=== PATIENT | male | born 1950 | race Caucasian/White ===

== ENCOUNTER 2019-07-15 09:47 | Inpatient (IN) ==
[2019-07-15] MEDS ORDERED: ANTIVERT PO ONE (10:12)
--- NOTE | 2019-07-15 10:28 | Diag Imaging Result Doc PS360 ---
EXAM: CHEST-1 VIEW 07/15/2019 HISTORY: sob TECHNIQUE: AP portable upright at 1016 COMMENT: There are skinfolds bilaterally. The heart size and pulmonary vascularity are within normal limits. The lungs are clear. There is a fairly large amount of gas and stool in the visualized portion of the splenic flexure of the colon. IMPRESSION: No evidence of acute intrathoracic disease. Electronically signed by Chi Rodriguez 07/15/2019 10:26 AM
[2019-07-15 10:32] LABS: BASO# 0.02 X1000 (0.0-0.2); BASO% 0.4 % (0.0-0.8); EOS# 0.06 X1000 (0.0-0.7); EOS% 1.3 % (0.0-10.0); HEMATOCRIT 42.8 % (42.0-52.0); HEMOGLOBIN 14.3 g/dL (14.0-18.0); IMM GRAN# 0.02 X1000 (0.0-0.04); IMM GRAN% 0.4 % (0.0-0.5); LYMPH# 1.23 X1000 (1.2-3.4); MCH 29.4 PG (27-31); MCHC 33.4 g/dL (33-37); MCV 87.9 FL (81-99); MONO# 0.37 X1000 (0.11-0.59); MONO% 7.8 % (1.7-9.3); MPV 10.1 FL (7.4-10.4); NEUT# 3.03 X1000 (1.4-6.5); NEUT% 64.1 % (42.2-75.2); PLT 250 X1000 (130-400); RBC 4.87 XMIL (4.7-6.1); RDW 13.3 % (11.5-14.5); WBC 4.73 X1000 (4.8-10.8)
[2019-07-15 11:08] LABS: AGAP 11; ALB/GLOB RATIO 1.4; ALBUMIN 4.1 g/dL (3.5-5.0); ALKALINE PHOSPHATASE 83 U/L (32-122); BUN 14 mg/dL (8-22); CALCIUM 9.5 mg/dL (8.8-10.2); CHLORIDE 96 mmol/L (98-107); COSMO 282; CREATININE 0.8 mg/dL (0.7-1.2); ESTIMATED GFR > 60; GLUCOSE 311 mg/dL (70-104); GOT 12 U/L (10-34); GPT 17 U/L (10-44); POTASSIUM 4.2 mmol/L (3.5-5.1); SODIUM 135 mmol/L (136-145); TCO2 28 mmol/L (25-35); TOTAL BILIRUBIN 0.35 mg/dL (0.20-1.00)
[2019-07-15 12:12] LABS: INR 0.92; PROTIME 12.4 Seconds (11.0-16.0); PTT 27.9 Seconds (22.3-41.8)
[2019-07-15] MEDS ORDERED: ASPIRIN PO ONE (14:01)
--- NOTE | 2019-07-15 14:58 | EKG Report ---
Test Performed on : 07/15/2019 10:02:38 AM Test Reason : sob Blood Pressure : / mmHG Vent. Rate : 088 BPM Atrial Rate : 088 BPM P-R Int : 172 ms QRS Dur : 092 ms QT Int : 382 ms P-R-T Axes : 067 -52 028 degrees QTc Int : 462 ms Normal sinus rhythm. Left anterior fascicular block Anteroseptal infarct (cited on or before 15-AUG-2017) ACUTE OH / STEMI Abnormal ECG When compared with ECG of 10-SEP-2018 14:01, No significant change was found Unconfirmed Result
--- NOTE | 2019-07-15 15:00 | EKG Report ---
Test Performed on : 07/15/2019 10:05:34 AM Test Reason : sob Blood Pressure : / mmHG Vent. Rate : 088 BPM Atrial Rate : 090 BPM P-R Int : 000 ms QRS Dur : 090 ms QT Int : 380 ms P-R-T Axes : 000 -54 020 degrees QTc Int : 459 ms Accelerated Junctional rhythm. Left anterior fascicular block Septal infarct (cited on or before 15-AUG-2017) Abnormal ECG When compared with ECG of 15-JUL-2019 10:02, (Unconfirmed) Junctional rhythm. has replaced Sinus rhythm. Unconfirmed Result
--- NOTE | 2019-07-15 17:40 | Diag Imaging Result Doc PS360 ---
EXAM: CT HEAD W/O CONTRAST HISTORY: encephalopathy TECHNIQUE: CT head without contrast COMPARISON: 10/31/2018 FINDINGS: No parenchymal hemorrhage. No epidural or subdural hematoma. No subarachnoid hemorrhage. There are chronic microvascular ischemic changes. No mass identified on this noncontrasted exam. No hydrocephalus. There is fluid in the mastoid sinuses. IMPRESSION: 1.No hemorrhage 2.Chronic microvascular ischemic changes This exam was performed using automated exposure control, adjustment of mA or kV according to patient size, and/or use of iterative reconstruction technique. Electronically signed by Dameon Cervantes 07/15/2019 5:38 PM
[2019-07-15] MEDS: NS + KCL 20 MEQ 1,000 ML IV SCH (17:57)
--- NOTE | 2019-07-15 19:03 | HISTORY AND PHYSICAL ---
CHIEF COMPLAINT: Dizziness. HISTORY OF PRESENT ILLNESS: Mr. Phipps is a 68-year-old white gentleman, not feeling well the last few days. The patient was complaining of being dizzy and unsteady this morning. The patient described dizziness at times as the lightheadedness and at other times vertigo lasting for few minutes. Patient was also complaining of a neck pain. The patient had a fall about a year ago. Patient does have nausea at times, but no vomiting. The patient had significant vertigo and dizziness a few days ago. At that time evaluated by EMS. They thought it was related to his heart. The patient was sent to [facility] in air ambulance where he was told to have vertigo and patient evaluated and sent back. The patient is very vague and poor historian. The patient denied any typical chest pain or palpitations. At times nausea, but no vomiting. The patient does have a ringing in the ears. Occasional cough. No expectoration. Denied abdominal pain. No diarrhea, blood, or mucus in the stool. No dysuria or hematuria. The patient does have, at times, constipation. Longstanding diabetes mellitus, poorly controlled, partially due to noncompliance to medication and diet the patient does have chronic low back pain and neck pain. The patient does have diffuse osteoarthritis. Unquantified weight loss. At times, polyuria, polydipsia. No leg swelling. The patient was feeling weak. No recent seizure-type episode. No joint swelling or redness. The patient was evaluated in the ER. His initial EKG suspicious for [place] which was reviewed by help desk technician. The patient did not have any chest pain, and his enzymes were negative. The patient claims to have poor appetite, vague abdominal pain and at times, nausea. ALLERGY: Propoxyphene. PAST MEDICAL HISTORY: Longstanding diabetes mellitus poorly controlled, hypertension, hyperlipidemia, weight loss, history of thyroid cancer status post surgery, osteoarthritis, gastritis, situational depression, peripheral neuropathy, BPH, gastritis and reflux disease. PERSONAL HISTORY: . Lives with the . Nonsmoker. Denied alcohol or substance abuse. Needs assistance in activities of daily living. FAMILY HISTORY: Significant for a mother with dementia, coronary artery disease, arthritis. His mother and few years ago. Father of pneumonia. Otherwise, noncontributory. PHYSICAL EXAMINATION: GENERAL: Elderly, white gentleman, who does look older for his age. The patient has lost weight. VITAL SIGNS: Blood pressure 130/80, pulse 78, respirations 20, temperature 99 degrees. SKIN: Senile turgor. HEENT: Head atraumatic, normocephalic. [place] conjunctivae. Anicteric sclerae. Extraocular muscle movement normal. Fundus cannot be penetrated. Good oral hygiene. No tonsillopharyngeal congestion or exudate. Ears and nose benign. NECK: Supple. No JVD, thyromegaly or lymphadenopathy. CHEST: Bilateral good air entry present. Few basal crepitations. No rales. CARDIOVASCULAR: S1 and S2 heard. No gallop or thrill. A 2/6 systolic murmur at the apex. ABDOMEN: Soft, scaphoid. Bowel sounds present. No organomegaly or mass. EXTREMITIES: No cyanosis, clubbing. No acute DVT. Peripheral pulsation intact. INVESTMENT DIRECTOR: Alert, awake. Answering questions fair. Able to move all 4 limbs. Patient does have tenderness on the cervical spine and lumbosacral spine. Crepitation in both the knee joints. 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 DIAGNOSTIC STUDIES: The patient's chest x-ray revealed no evidence of acute intrathoracic disease. CT scan of the brain no acute disease. I reviewed his EKG which was benign. IMPRESSION: Patient admitted with dizziness. Clinically sounds like vertigo. Patient does have other multiple medical problems, including uncontrolled diabetes mellitus, hypertension, gastritis and reflux disease and neck pain. The patient was recently seen by [facility]. I am going to get that record. Hyperlipidemia. History of thyroid cancer. PLAN: Admit the patient. Neuro check. IV fluid. Check postural blood pressure and heart rate. Monitor Accu-Chek. Fall precaution. Continue rest of the medicine. Overall plan discussed at length with the patient and he is in agreement. cc: Andrea Goddard MD
--- NOTE | 2019-07-15 19:12 | Diag Imaging Result Doc PS360 ---
EXAM: CERVICAL SPINE COMPLETE HISTORY: neck pain TECHNIQUE: AP and lateral with obliques, five views COMPARISON: 04/23/2014 FINDINGS: Mild reversal of the normal curvature. Prominent degenerative bone spurring in the lower cervical spine. No precervical soft tissue swelling. No subluxation. IMPRESSION: Prominent degenerative changes. Electronically signed by Dameon Cervantes 07/15/2019 7:10 PM
[2019-07-15] MEDS ORDERED: TYLENOL PO PRN (20:11)
[2019-07-15] MEDS ORDERED: FLOMAX PO SCH (21:00)
[2019-07-15] MEDS: HUMALOG SUBQ SCH (21:08)
[2019-07-15] MEDS: TOPROL XL PO SCH (21:08)
[2019-07-16 04:58] LABS: BASO# 0.01 X1000 (0.0-0.2); BASO% 0.1 % (0.0-0.8); EOS# 0.06 X1000 (0.0-0.7); EOS% 0.9 % (0.0-10.0); HEMATOCRIT 38.7 % (42.0-52.0); HEMOGLOBIN 12.9 g/dL (14.0-18.0); IMM GRAN# 0.02 X1000 (0.0-0.04); IMM GRAN% 0.3 % (0.0-0.5); LYMPH# 1.47 X1000 (1.2-3.4); MCH 29.2 PG (27-31); MCHC 33.3 g/dL (33-37); MCV 87.6 FL (81-99); MONO# 0.46 X1000 (0.11-0.59); MONO% 6.9 % (1.7-9.3); MPV 9.9 FL (7.4-10.4); NEUT# 4.65 X1000 (1.4-6.5); NEUT% 69.8 % (42.2-75.2); PLT 255 X1000 (130-400); RBC 4.42 XMIL (4.7-6.1); RDW 13.3 % (11.5-14.5); WBC 6.67 X1000 (4.8-10.8)
[2019-07-16 05:08] LABS: HEMOGLOBIN A1C 13.5 % (4.8-6.0)
[2019-07-16] MEDS: NS + KCL 20 MEQ 1,000 ML IV SCH (05:18)
[2019-07-16 05:26] LABS: AGAP 9; ALB/GLOB RATIO 1.3; ALBUMIN 3.5 g/dL (3.5-5.0); ALKALINE PHOSPHATASE 70 U/L (32-122); BUN 18 mg/dL (8-22); CALCIUM 9.1 mg/dL (8.8-10.2); CHLORIDE 99 mmol/L (98-107); COSMO 276; CREATININE 0.6 mg/dL (0.7-1.2); ESTIMATED GFR > 60; GLUCOSE 173 mg/dL (70-104); GOT 13 U/L (10-34); GPT 14 U/L (10-44); MAGNESIUM 1.5 mg/dL (1.5-2.7); POTASSIUM 3.8 mmol/L (3.5-5.1); SODIUM 135 mmol/L (136-145); TCO2 27 mmol/L (25-35); TOTAL BILIRUBIN 0.32 mg/dL (0.20-1.00); TOTAL PROTEIN 6.3 g/dL (6.3-8.3)
[2019-07-16 05:45] LABS: TSH 1.39 uIUmL (0.27-4.20)
[2019-07-16] MEDS: HUMALOG SUBQ SCH ×3 (06:41→18:04)
[2019-07-16] MEDS ORDERED: MILK OF MAGNESIA PO ONE (07:02)
[2019-07-16] MEDS ORDERED: LINZESS PO ONE (07:02)
--- NOTE | 2019-07-16 07:16 | PROGRESS NOTE ---
DATE: 07/16/2019 SUBJECTIVE: Mr. Phipps is doing better. The patient was able to rest well last night. No high- grade fever or chills. Denied any chest pain. His vertigo is better. Denied any headache. No runny nose or stuffy nose. OBJECTIVE: Vitals: Noted. Neck: Supple. No JVD. Lungs: Bilateral good air entry present. CVS: S1 and S2 heard. Abdomen: Soft, nontender. Bowel sounds present. Extremities: No cyanosis or clubbing. No acute DVT. BAREBACK RIDER: Alert, awake, able to move all 4 limbs. DIAGNOSTIC DATA: The patient had x-ray done of the cervical spine which did reveal prominent degenerative changes which can explain his pain. X-ray of the chest, no evidence of acute intrathoracic disease. The patient seems to have significant constipation. Patient admitted with dizziness. His lab data did reveal uncontrolled diabetes mellitus. Hemoglobin A1c was 13.5. The patient is quite noncompliant. Continue current treatment, close observation. His BUN was 18, creatinine 0.6. Calcium 9.1. Magnesium was 1.5. ASSESSMENT AND PLAN: Overall plan was discussed with the patient and and they are in agreement. cc: Andrea Goddard MD
[2019-07-16] MEDS ORDERED: LANTUS INSULIN SUBQ SCH (09:00)
[2019-07-16] MEDS ORDERED: NORVASC PO SCH ×2 (09:00)
[2019-07-16] MEDS ORDERED: CYMBALTA PO SCH (09:00)
[2019-07-16] MEDS ORDERED: AVAPRO PO SCH (09:00)
[2019-07-16] MEDS ORDERED: VITAMIN D PO SCH (09:00)
[2019-07-16] MEDS: TOPROL XL PO SCH (09:03)
[2019-07-16 14:15] VITALS: BP 116/61
[2019-07-16 18:05] LABS: URINE SOURCE CLEAN CATCH
[2019-07-16 18:11] LABS: BILIRUBIN URINE NEGATIVE (NEGATIVE); BLOOD URINE NEGATIVE (NEGATIVE); COLOR YELLOW; GLUCOSE URINE >1000 mg/dL (NEGATIVE); KETONE URINE NEGATIVE (NEGATIVE); LEUKOCYTES URINE NEGATIVE (NEGATIVE); NITRITE URINE NEGATIVE (NEGATIVE); PH URINE 5.5; PROTEIN URINE NEGATIVE (NEGATIVE); TURBIDITY URINE CLEAR (CLEAR); UROBILINOGEN URINE NORMAL (NORMAL)
[2019-07-16 18:20] LABS: UR EPITHELIAL CELLS <10 /HPF (<10); URINE BACTERIA NEGATIVE /HPF; URINE CASTS NONE SEEN; URINE CRYSTALS NONE SEEN; URINE RBC <10 /HPF (<10); URINE SMALL ROUND CELLS NONE SEEN; URINE WBC <10 /HPF (<10); URINE YEAST PRESENT
--- NOTE | 2019-07-17 14:10 | Carotid Study ---
DATE: 07/15/2019 PROCEDURE PERFORMED: Bilateral duplex and color flow imaging of the carotid arteries performed using a GE Vivid E9 ultrasound system with a 9L-D transducer. REFERRING PHYSICIAN: Not recorded. INDICATION: Dizziness. MANAGER STAR: Gautam Jo RVT. FINDINGS: The velocities in cm/sec of both carotid systems were reviewed. The right ICA/CCA ratio is 0.92 corresponding to a percent stenosis of 0 to 39 percent. The left ICA/CCA ratio 0.64 corresponding to a percent stenosis of 0 to 39 percent. INTERPRETATION: Mild atherosclerotic disease of the distal common and internal carotid arteries bilaterally without evidence of a hemodynamically significant lesion in either carotid system. cc: MD Andrea Loyola MD
--- NOTE | 2019-07-17 15:35 | PROVIDER DOCUMENTATION ---
This chart was entered by Nava Espino Scribe, acting as scribe for Larry Chavarria MD. HPI-Cardiac General - General Stated Complaint: WEAKNESS Time Seen by Provider: 07/15/19 10:06 Source: patient, family Allergies/Adverse Reactions: Patient Allergies Allergy/AdvReac Type Severity Reaction Status Date / Time propoxyphene Allergy Intermediate Unknown Verified 10/31/18 10:58 propoxyphene HCl * Allergy Unknown Verified 10/31/18 10:58 [From [facility]] Home Medications: Home Medication List Medication Instructions Recorded Confirmed Last Taken Type Amlodipine [Norvasc] 5 mg PO DAILY tablet 08/09/17 07/15/19 10/30/18 07:00 Rx Tamsulosin [Flomax] 0.4 mg PO DAILY #30 capsule 08/09/17 07/15/19 10/30/18 07:00 Rx Losartan [Cozaar] 100 mg PO DAILY 10/15/17 07/15/19 10/30/18 07:00 History Insulin Glargine [Lantus] 0 unit SUBQ QAM #7 insuln.pen 09/14/18 07/15/19 10/31/18 08:00 Rx Cholecalciferol (Vitamin D3) 1,000 unit PO DAILY 10/31/18 07/15/19 10/30/18 07:00 History [Vitamin D3] Duloxetine [Cymbalta] 60 mg PO QAM 10/31/18 07/15/19 10/30/18 07:00 History Metoprolol Succinate E.r. [Toprol 25 mg PO BID 10/31/18 07/15/19 10/30/18 20:00 History Xl] Irbesartan 150 mg PO DAILY 07/15/19 07/15/19 Unknown History Metformin [Glucophage] 500 mg PO DAILY 07/15/19 07/15/19 Unknown History - History of Present Illness-Cardiac Nature of Presenting Problem: 68yom presents to ED by EMS cc dizzy, SOB, seeing spots, nausea and pain in back of neck for 1 week. Family is at bedside and reports pt was seen recently at [facility] for similar symptoms. Pt denies chest pain. Pt and family are very poor hx. Pt has hx of HTN, DM and dementia. EMS reprots pt b/p was 50/? upon arrival so in route they gave him 50 atropine and 500 IV fluids. Onset/Duration: 1 week ago Timing: still present Context/Activities at Onset: reports: light activity Modifying Factors: improves with: nothing Associated Symptoms: reports: nausea, shortness of breath Similar Symptoms Previously?: Yes Recently Seen Here or By Another Healthcare Provider: Yes Review of Systems - Adult - REVIEW OF SYSTEMS - ADULT Constitutional: reports: see HPI, fatique. denies: chills, fever Eyes: reports: no symptoms reported Ears, Nose, Mouth & Throat: reports: no symptoms reported Cardiovascular: reports: see HPI. denies: chest pain, palpitations Respiratory: reports: see HPI, shortness of breath. denies: cough Gastrointestinal: reports: see HPI, nausea. denies: diarrhea, vomiting Genitourinary: reports: no symptoms reported Musculoskeletal: reports: see HPI, neck pain Integumentary: reports: no symptoms reported Neurological: reports: see HPI, dizziness/vertigo. denies: syncope Psychiatric: reports: no symptoms reported Endocrine: reports: no symptoms reported Hematologic/Lymphatic: reports: no symptoms reported Allergic/Immunologic: reports: no symptoms reported All Other Systems: Reviewed and Negative Past History - Adult - PAST MEDICAL HISTORY-ADULT Review of Records: reports: Nursing Assessment Review, Medications Reviewed, Social history reviewed & non-contributory. Major Childhood Illnesses: reports: denies history Cardiovascular: reports: HTN, hyperlipidemia Respiratory: reports: denies history Gastrointestinal: reports: denies history Obstetrical/Gynecological: reports: denies history Genitourinary: reports: denies history Musculoskeletal: reports: denies history Neurological: reports: Seizures/Epilepsy Psychiatric: reports: denies history Endocrine/Immune: reports: Diabetes, thyroid disorder Other Conditions: reports: denies history - PRIOR SURGERIES/PROCEDURES Surgical/Procedure History: reports: reviewed, not pertinent, cholecystectomy, hernia repair - PRIOR HOSPITALIZATIONS Prior Hospitalizations: reports: for other non-related - IMMUNIZATION STATUS Childhood Immunizations: See Nurse Assessment Flu Vaccine: See Nurse Assessment - FAMILY HISTORY Family History: reviewed, not pertinent Physical Exam-General - PHYSICAL EXAM-ADULT Initial Vital Signs Reviewed: Yes - CONSTITUTIONAL General Appearance: alert, no apparent distress. negative: anxious, combative - EYES Eyes: PERRL/EOMI, pink conjunctivae. negative: photophobia - HEAD, EARS, NOSE, MOUTH & THROAT HENMT: normocephalic/atraumatic, moist mucous membranes. negative: angioedema - RESPIRATORY Respiratory: chest non-tender, lungs clear, normal breath sounds. negative: stridor, wheezing - CARDIOVASCULAR Cardiovascular: normal peripheral pulses, regular rate, rhythm, no edema. negative: bradycardia, tachycardia - GASTROINTESTINAL (ABDOMEN) Abdominal Exam: normal bowel sounds, non tender, soft. negative: guarding, rebound - SKIN Integumentary: normal color. negative: diaphoresis, jaundice - PSYCHIATRIC Psych/Mental Status: normal mood/affect, oriented x 3. negative: anxious, disheveled - HEART Score HEART Score: History: Moderately Suspicious HEART Score: ECG: Non-Specific Repolarization Disturbance/LBBB/PM HEART Score: Age: > or = 65 Years HEART Score: Risk Factors for Atherosclerotic Disease: 1 or 2 Risk Factors HEART Score: Troponin: < or = Normal Limit Total HEART Score:: 5 Progress - PLAN OF CARE/RESULTS Progress/Plan/Lab Results: Vital Signs - 8 hr 07/15/19 10:20 Pulse Rate 78 Respiratory Rate 20 Blood Pressure 130/80 O2 Sat by Pulse Oximetry 99 Laboratory Results - last 24 hr 07/15/19 07/15/19 07/15/19 10:20 10:20 10:20 WBC 4.73 L RBC 4.87 Hgb 14.3 Hct 42.8 MCV 87.9 MCH 29.4 MCHC 33.4 RDW Std Deviation 13.3 Plt Count 250 MPV 10.1 Immature Gran % (Auto) 0.4 Neut % (Auto) 64.1 Lymph % (Auto) 26.0 [place] % (Auto) 7.8 Eos % (Auto) 1.3 Baso % (Auto) 0.4 Immature Gran # (Auto) 0.02 Neut # (Auto) 3.03 Lymph # (Auto) 1.23 [place] # (Auto) 0.37 Eos # (Auto) 0.06 Baso # (Auto) 0.02 PT INR PTT (Actin FS) Sodium 135 L Potassium 4.2 Chloride 96 L Carbon Dioxide 28 Anion Gap 11 BUN 14 Creatinine 0.8 Estimated GFR/1.73 m2 > 60 BUN/Creatinine Ratio 18 Glucose 311 H POC Glucose Calculated Osmolality 282 Calcium 9.5 Total Bilirubin 0.35 AST 12 ALT 17 Alkaline Phosphatase 83 Troponin T Rxs-D-Siyviptnktj Pept 67 Total Protein 7.0 Albumin 4.1 Globulin 2.9 Albumin/Globulin Ratio 1.4 07/15/19 07/15/19 07/15/19 10:20 10:20 11:39 WBC RBC Hgb Hct MCV MCH MCHC RDW Std Deviation Plt Count MPV Immature Gran % (Auto) Neut % (Auto) Lymph % (Auto) [place] % (Auto) Eos % (Auto) Baso % (Auto) Immature Gran # (Auto) Neut # (Auto) Lymph # (Auto) [place] # (Auto) Eos # (Auto) Baso # (Auto) PT 12.5 INR 0.92 PTT (Actin FS) 27.7 Sodium Potassium Chloride Carbon Dioxide Anion Gap BUN Creatinine Estimated GFR/1.73 m2 BUN/Creatinine Ratio Glucose POC Glucose 244 H Calculated Osmolality Calcium Total Bilirubin AST ALT Alkaline Phosphatase Troponin T < 0.010 [id number]-H-[id number] Pept Total Protein Albumin Globulin Albumin/Globulin Ratio Orders Category Date Time Status Nursing- Obtain EKG ONCE Care 07/15/19 10:11 Active CHEST-1 VIEW [RAD] Stat Exams 07/15/19 10:11 Completed CBC WITH ELECTRONIC DIFF [HEME] Stat Lab 07/15/19 10:20 Completed COMPREHENSIVE METABOLIC PANEL [CHEM] Stat Lab 07/15/19 10:20 Completed D-DIMER [COAG] Stat Lab 07/15/19 11:44 Ordered PRO B-NATRIURETIC PEPTIDE Stat Lab 07/15/19 10:20 Completed PT [PROTIME WITH INR] [COAG] Stat Lab 07/15/19 10:20 Completed PTT [COAG] Stat Lab 07/15/19 10:20 Completed TROPONIN T Stat Lab 07/15/19 10:20 Completed Meclizine [Antivert] Med 07/15/19 10:12 Discontinued 25 mg PO NOW ONE EKG [EKG] Stat Ther 07/15/19 10:11 Ordered Result Diagrams: 07/15/19 10:20 07/15/19 10:20 - EKG 1 Time of EKG reading by physician:: 10:02 EKG Read and Signed by:: Larry Chavarria EKG Interpretation (*Must complete 3 of following elements*): Abnormal (left anterior fascicular block anteroseptal infarct, possible acute) Rate: 88 Rhythm: nsr QRS: normal MD Interval: normal 2 Time of EKG reading by physician:: 10:05 EKG Read and Signed by:: Larry Chavarria EKG Interpretation (*Must complete 3 of following elements*): Abnormal (left anterior fascicular block septal infarct;age undetermined) Rate: 88 Rhythm: accelerated junctional rhythm QRS: normal ST Wave: normal Prior EKG Comparison: unchanged from prior - XRAY 1 XRAY: Bilateral XRAY Study: Chest Impression: See EMR Report (IMPRESSION: No evidence of acute intrathoracic disease. Electronically signed by Chi Rodriguez 07/15/2019 10:26 AM) - CONSULTS/PCP/HOSPITALIST Notification #1 *Consult/PCP/Hospitalist*: Dr. Zelaya Time Discussed: 10:20 Consult Disposition: other (saw pt in ED willl follow up later after tests are back) #2 Consult: Dr. Goddard Time Discussed: 11:46 Consult Disposition: Admit (accepted pt and wants us to check D-dimer) Departure - Departure Date of Disposition Decision: 07/15/19 Time of Disposition Decision: 11:47 DIAGNOSIS: Shortness of breath, Vertigo Disposition: ADMITTED INPATIENT 09 Certified Medical Emergency: Emergent Condition: Stable Additional Instructions: ED Follow Up Instructions: You have been treated by a care provider in the Emergency Department. These instructions are being provided to you so you can have an understanding of how to care for yourself upon discharge. Upon discharge from the Emergency Department, you are responsible for making arrangements for follow-up care by a physician of your choice. Take all prescribed medications as directed. Return to the Emergency Department immediately for any new or worsening symptoms. You may call the Physician Referral phone number at [phone] to obtain a list of Physicians who are taking new patients. Referrals and Follow-Ups: Andrea Goddard MD [Primary Care Provider] - - Critical Care Note This patient required my direct & personal management of CC.: No Attestation - Physician/ DAVID Attestation Patient care was provided by Advanced Practice Provider:: No The physician spent face to face time with patient:: Yes Advanced Practice Provider documentation review:: Supervising physician onsite and consulted in the evaluation and care of this patient. The physician did have a face to face encounter with the patient. This chart was documented by the serina [email or web address], (Nava Espino Scribe) and accurately reflects the services I performed and decisions made by me, Larry Chavarria MD, as attested by the provider's signature.
== END 2019-07-16 19:48 | disposition home or self-care (01) | DRG 149 ==
LOC: ED 09:47 → EDIPHOLD 12:55 → 3N 16:29
PROVIDERS: ADMIT Internal Medicine; ATTEND Internal Medicine